=== PATIENT | female | born 1995 | race Asian ===

== ENCOUNTER 2021-06-21 01:02 | Emergency (ER) | payer SELFPAY ==
[~2021-06-21] VITALS: Ht 152.4 cm; Wt 55.0 kg
[2021-06-21] MEDS ORDERED: LIDOCAINE 1% 10 ML VIAL ID ONE (01:45)
[2021-06-21] MEDS ORDERED: MORPHINE SULFATE 4 MG/ML SYRINGE IM ONE (01:45)
[2021-06-21 03:00] VITALS: BP 119/68
== END 2021-06-21 04:24 | disposition home or self-care (01) ==
LOC: EMS 01:04
DX: K64.5 Perianal venous thrombosis (principal)
CPT/HCPCS: 46083; 96372; 99284; J2270; J3490; 10060; 99283